=== PATIENT | male | born 1955 | race Caucasian/White ===

== ENCOUNTER 2017-08-12 12:45 | Emergency (ER) | payer OTHER, MEDICARE ==
[~2017-08-12] VITALS: Ht 160 cm; Wt 72.2 kg
[2017-08-12] MEDS ORDERED: ondansetron/PF 4mg/2ml inj IV ONE (13:20)
[2017-08-12] MEDS ORDERED: ringers solution, lactated 1000ml IV soln IV ONE (13:20)
[2017-08-12 13:51] LABS: BASOPHILS % (AUTO) 0.3 % (0-1); EOSINOPHILS # (AUTO) 0.1 X10'3 (0-0.9); EOSINOPHILS % (AUTO) 1.6 % (0-6); HEMOGLOBIN 15.4 g/dl (14.0-17.9); LYMPHOCYTES # (AUTO) 1.3 X10'3 (1.1-4.8); LYMPHOCYTES % (AUTO) 24.5 % (21-51); MEAN CORPUSCULAR HEMOGLOBIN 34.5 PG (27.0-31.0); MEAN CORPUSCULAR VOLUME 98.7 FL (78-98); MONOCYTES # (AUTO) 0.8 X10'3 (0-0.9); MONOCYTES % (AUTO) 13.8 % (2-12); NEUTROPHILS # (AUTO) 3.3 X10'3 (1.8-7.7); NEUTROPHILS % (AUTO) 59.8 % (42-75); PLATELET COUNT 88 X10'3 (140-440); RED BLOOD COUNT 4.46 X10'6 (4.70-6.10); RED CELL DISTRIBUTION WIDTH 13.4 % (11.5-14.5); WHITE BLOOD COUNT 5.5 X10'3 (4.5-11.0)
[2017-08-12] MEDS ORDERED: LORazepam 2 mg/ml vial IV ONE (14:00)
[2017-08-12 14:05] LABS: ALANINE AMINOTRANSFERASE 378 U/L (12-78); ALBUMIN 3.9 G/DL (3.4-5.0); ALBUMIN/GLOBULIN RATIO 1.1 (1.1-1.5); ALKALINE PHOSPHATASE 74 IU/L (46-116); ANION GAP 13 (8-16); ASPARTATE AMINO TRANSFERASE 360 U/L (10-37); BLOOD UREA NITROGEN 17 MG/DL (7-18); BUN/CREATININE RATIO 15.6 (5.4-32.0); CALCIUM 8.7 MG/DL (8.5-10.1); CHLORIDE 90 MMOL/L (99-107); CREATININE 1.09 MG/DL (0.60-1.10); GLUCOSE 95 MG/DL (70-104); MAGNESIUM 1.6 MG/DL (1.5-2.4); POTASSIUM 3.8 MMOL/L (3.5-5.1); SODIUM 129 MMOL/L (135-145); TOTAL CARBON DIOXIDE 26.3 MMOL/L (24-32); TOTAL PROTEIN 7.4 G/DL (6.4-8.2); eGFR 68 ML/MIN
[2017-08-12 14:25] LABS: ETHANOL 0.22 GM/DL (0.0-0.010)
[2017-08-12] MEDS ORDERED: SUCR1ORA2 PO (14:57)
[2017-08-12] MEDS ORDERED: ONDA4TAB6 PO (14:57)
[2017-08-12] MEDS ORDERED: sucralfate 1gm/10ml UD suspension PO STA (14:58)
[2017-08-12] MEDS ORDERED: LIDOcaine Viscous 15ml cup PO ONE (15:00)
[2017-08-12] MEDS ORDERED: mag hydrox/Alum hydrox/simeth 30ml oral suspension PO ONE (15:00)
[2017-08-12] MEDS ORDERED: chlordiazePOXIDE 25mg capsule PO ONE (16:15)
[2017-08-12 16:41] VITALS: BP 123/67
== END 2017-08-12 16:46 | disposition home or self-care (01) ==
LOC: ER 12:45
DX: F10.239 Alcohol dependence with withdrawal, unspecified (principal); K70.10 Alcoholic hepatitis without ascites; R10.84 Generalized abdominal pain; F17.200 Nicotine dependence, unspecified, uncomplicated; Y90.9 Presence of alcohol in blood, level not specified
CPT/HCPCS: 36415; 71045; 80053; 80320; 83690; 83735; 85025; 96361; 96374; 96375; 99285; J2060; J2405; J7120

== ENCOUNTER 2019-02-19 17:01 | Emergency (ER) | payer OTHER ==
[~2019-02-19] VITALS: Ht 160 cm; Wt 68.2 kg
[~2019-02-19 17:01] MED LIST: ONDA4TAB6 PO; SUCR1ORA2 PO
[2019-02-19] MEDS ORDERED: ondansetron/PF 4mg/2ml inj IV ONE (17:10)
[2019-02-19] MEDS ORDERED: diphenhydrAMINE 50 mg/ml inj IV ONE (17:10)
[2019-02-19] MEDS ORDERED: ondansetron 4mg rapidly disintigrating tab PO ONE (17:30)
[2019-02-19] MEDS ORDERED: diphenhydrAMINE 25mg capsule PO ONE (17:30)
[2019-02-19 17:32] LABS: BASOPHILS % (AUTO) 0.4 % (0-1); EOSINOPHILS % (AUTO) 0.3 % (0-6); HEMATOCRIT 43.1 % (42.0-52.0); HEMOGLOBIN 14.9 g/dl (14.0-17.9); LYMPHOCYTES # (AUTO) 1.6 X10'3 (1.1-4.8); LYMPHOCYTES % (AUTO) 23.2 % (21-51); MEAN CORPUSCULAR HEMOGLOBIN 33.5 PG (27.0-31.0); MEAN CORPUSCULAR HGB CONC 34.5 g/dL (33.0-36.5); MEAN CORPUSCULAR VOLUME 97.1 FL (78-98); MEAN PLATELET VOLUME 10.2 FL (7.4-10.4); MONOCYTES # (AUTO) 0.8 X10'3 (0-0.9); MONOCYTES % (AUTO) 12.1 % (2-12); NEUTROPHILS # (AUTO) 4.4 X10'3 (1.8-7.7); PLATELET COUNT 98 X10'3 (140-440); RED BLOOD COUNT 4.44 X10'6 (4.70-6.10); RED CELL DISTRIBUTION WIDTH 13.9 % (11.5-14.5); WHITE BLOOD COUNT 6.8 X10'3 (4.5-11.0)
[2019-02-19 17:41] LABS: ALBUMIN 3.5 G/DL (3.4-5.0); ANION GAP 13 (8-16); BLOOD UREA NITROGEN 14 MG/DL (7-18); CALCIUM 8.4 MG/DL (8.5-10.1); CHLORIDE 102 MMOL/L (99-107); GLUCOSE 117 MG/DL (70-104); POTASSIUM 3.1 MMOL/L (3.5-5.1); SODIUM 143 MMOL/L (135-145); TOTAL CARBON DIOXIDE 27.9 MMOL/L (24-32); eGFR 75 ML/MIN
[2019-02-19] MEDS ORDERED: potassium chloride 8mEq ER tablet PO ONE (17:50)
[2019-02-19 17:59] VITALS: BP 131/73
[2019-02-20] MEDS ORDERED: ONDA4TAB6 PO (17:35)
== END 2019-02-19 18:01 | disposition home or self-care (01) ==
LOC: ER 17:01
DX: F10.10 Alcohol abuse, uncomplicated (principal); R10.9 Unspecified abdominal pain; Z79.899 Other long term (current) drug therapy
CPT/HCPCS: 36415; 80048; 85025; 99284; J2405; Q0163

== ENCOUNTER 2019-02-20 00:34 | Emergency (ER) | payer OTHER ==
[~2019-02-20] VITALS: Ht 160 cm; Wt 65.0 kg
[2019-02-20 00:38] VITALS: BP 128/98
--- NOTE | 2019-02-20 00:47 | NUR ---
observed patient walking out of lobby - unk if he is leaving or just going outside for fresh air.
--- NOTE | 2019-02-20 00:52 | NUR ---
pt walked back in to registration and requested a taxi to go back to [place]. work order detailer aware and MD and PA not available to see pt - taxi to be called for patient per work order detailer
[2019-02-20] MEDS ORDERED: ONDA4TAB6 PO (17:35)
== END 2019-02-20 00:56 | disposition left against medical advice (07) ==
LOC: ER 00:35
DX: F10.239 Alcohol dependence with withdrawal, unspecified (principal); Z53.21 Procedure and treatment not carried out due to patient leaving prior to being seen by health care provider

== ENCOUNTER 2019-02-20 11:56 | Emergency (ER) | payer OTHER ==
[~2019-02-20] VITALS: Ht 160 cm; Wt 68.4 kg
[2019-02-20 13:15] LABS: EOSINOPHILS # (AUTO) 0.1 X10'3 (0-0.9); HEMOGLOBIN 14.4 g/dl (14.0-17.9); LYMPHOCYTES # (AUTO) 1.1 X10'3 (1.1-4.8); MONOCYTES # (AUTO) 0.9 X10'3 (0-0.9); NEUTROPHILS # (AUTO) 3.6 X10'3 (1.8-7.7); RED CELL DISTRIBUTION WIDTH 13.6 % (11.5-14.5); WHITE BLOOD COUNT 5.7 X10'3 (4.5-11.0)
[2019-02-20 13:16] LABS: BASOPHILS % (AUTO) 0.5 % (0-1); EOSINOPHILS % (AUTO) 1.2 % (0-6); HEMATOCRIT 41.6 % (42.0-52.0); LYMPHOCYTES % (AUTO) 19.5 % (21-51); MEAN CORPUSCULAR HEMOGLOBIN 33.7 PG (27.0-31.0); MEAN CORPUSCULAR HGB CONC 34.5 g/dL (33.0-36.5); MEAN CORPUSCULAR VOLUME 97.5 FL (78-98); MEAN PLATELET VOLUME 10.4 FL (7.4-10.4); NEUTROPHILS % (AUTO) 63.8 % (42-75); PLATELET COUNT 76 X10'3 (140-440); RED BLOOD COUNT 4.27 X10'6 (4.70-6.10)
[2019-02-20 13:21] LABS: CLARITY,URINE CLEAR (Clear); COLOR,URINE YELLOW (Yellow); GLUCOSE, URINE NEGATIVE (Neg); KETONES,URINE TRACE mg/dl (Neg); LEUKOCYTE ESTERASE ,URINE NEGATIVE (Neg); OCCULT BLOOD,URINE TRACE-INTACT (Neg); PROTEIN,URINE 30 mg/dl (Neg)
[2019-02-20 13:23] LABS: UA COLLECTION TYPE URINAL
[2019-02-20 13:27] LABS: NITRITES, URINE NEGATIVE (Neg)
[2019-02-20 13:28] LABS: ALBUMIN 3.6 G/DL (3.4-5.0); ALBUMIN/GLOBULIN RATIO 1.1 (1.1-1.5); ANION GAP 9 (8-16); ASPARTATE AMINO TRANSFERASE 760 U/L (10-37); BILIRUBIN,TOTAL 2.3 MG/DL (0.1-1.0); BLOOD UREA NITROGEN 20 MG/DL (7-18); BUN/CREATININE RATIO 17.9 (5.4-32.0); CALCIUM 8.9 MG/DL (8.5-10.1); CHLORIDE 101 MMOL/L (99-107); CREATININE 1.12 MG/DL (0.60-1.10); GLUCOSE 104 MG/DL (70-104); SODIUM 139 MMOL/L (135-145); TOTAL CARBON DIOXIDE 29.1 MMOL/L (24-32); eGFR 66 ML/MIN
[2019-02-20 13:28] LABS: MUCUS STRANDS FEW /LPF (Neg); TRANSITIONAL EPI CELLS,URINE FEW /HPF
[2019-02-20 13:29] LABS: ALANINE AMINOTRANSFERASE 243 U/L (12-78); ALKALINE PHOSPHATASE 95 IU/L (46-116)
[2019-02-20 13:29] LABS: HYALINE CASTS 0-3 /LPF (NEGATIVE); SQUAMOUS EPITHELIAL CELL,UR FEW /LPF (FEW)
[2019-02-20 13:30] LABS: BACTERIA,URINE FEW /HPF (Neg); RBC,URINE 0-2 /HPF (0-2); WBC,URINE 0-4 /HPF (0-4)
[2019-02-20 13:31] LABS: POTASSIUM 2.9 MMOL/L (3.5-5.1)
[2019-02-20] MEDS ORDERED: phenobarbital inj 260 MG in normal saline 100ml IV soln 99 ML IV STA (13:44)
[2019-02-20] MEDS ORDERED: magnesium 2GM in 50ml NS 50 ML IV ONE (13:45)
[2019-02-20] MEDS ORDERED: normal saline 1000ML IV soln IVB ONE (13:45)
[2019-02-20] MEDS ORDERED: ondansetron/PF 4mg/2ml inj IV ONE (13:45)
[2019-02-20] MEDS ORDERED: thiamine inj. 100 MG in normal saline 100ml IV soln 99 ML IV ONE (13:45)
--- NOTE | 2019-02-20 14:06 | NUR ---
ASSISTING RN WITH PT CARE, PHYSICIAN ANESTHESIOLOGIST AT BEDSIDE, 1ST LITER NS INFUSING W/O
[2019-02-20 14:15] LABS: ANISOCYTOSIS 1+; PLATELET ESTIMATE DECREASED; TOTAL CELLS COUNTED 100
--- NOTE | 2019-02-20 14:26 | NUR ---
PT TO CT
[2019-02-20] MEDS ORDERED: potassium Cl 20 mEq SR tablet PO ONE (14:30)
[2019-02-20 14:43] LABS: MAGNESIUM 1.1 MG/DL (1.5-2.4)
[2019-02-20 14:45] LABS: ETHANOL < 0.010 GM/DL (0.0-0.010)
--- NOTE | 2019-02-20 14:49 | NUR ---
2ND LITER NS INFUSING, PT IS LESS SHAKY "I FEEL A LITTLE BETTER", DENIES ANY HALLUCINATIONS
[2019-02-20] MEDS ORDERED: NORMAL SALINE IV PRN (16:05)
[2019-02-20] MEDS ORDERED: PHENOBARBITAL IV PRN (16:05)
--- NOTE | 2019-02-20 17:32 | NUR ---
PT WAS AT [facility] TODAY AND WANTS TO RETURN IF DC'D HOME, LEFT [facility] [place] WITH [facility]MPIR, WAITING FOR CALL BACK
[2019-02-20] MEDS ORDERED: ONDA4TAB6 PO (17:35)
--- NOTE | 2019-02-20 17:46 | NUR ---
SPOKE TO CLAUDIO. CLAUDIO STATED THEY WILL TAKE HIM BACK ONCE HE IS D/C'D
--- NOTE | 2019-02-20 18:04 | NUR ---
contacted [facility] [phone], left msg pt was being dc'd, they will provide uber for pt to go back to rehab
[2019-02-20 18:05] VITALS: BP 147/83
[2019-02-22 09:32] LABS: HBSAG SCREEN Negative (Negative); HEP A AB, IGM Negative (Negative); HEP B CORE AB, IGM Negative (Negative); HEPATITIS C ANTIBODY >11.0 s/co ratio (0.0-0.9)
== END 2019-02-20 18:06 | disposition home or self-care (01) ==
LOC: ER 11:56
DX: K52.9 Noninfective gastroenteritis and colitis, unspecified (principal); F10.239 Alcohol dependence with withdrawal, unspecified; R11.2 Nausea with vomiting, unspecified; N18.9 Chronic kidney disease, unspecified; E87.6 Hypokalemia; R74.0 Nonspecific elevation of levels of transaminase and lactic acid dehydrogenase [LDH]; R10.84 Generalized abdominal pain; R10.32 Left lower quadrant pain; Z86.19 Personal history of other infectious and parasitic diseases; Y90.9 Presence of alcohol in blood, level not specified
CPT/HCPCS: 36415; 71045; 74176; 80053; 80320; 81001; 83735; 85025; 85610; 86706; 93005; 96365; 96366; 96368; 96375; 96376; 99284; J2405; J2560; J3411; J3475; J7030; 86705; 86709; 86803; 87340